=== PATIENT | female | born 1945 | race Caucasian/White ===

== ENCOUNTER 2017-02-10 09:04 | Outpatient (CLI) | payer MEDICARE ==
[2017-02-10 10:05] LABS: #Basophils 0.1 thou/uL (0.0-0.2); #Eosinphils 0.2 thou/uL (0.0-0.7); #Lymphocytes 2.2 thou/uL (1.20-3.40); #Monocytes 0.7 thou/uL (0.11-0.59); #Neutrophils 4.1 thou/uL (1.40-6.50); %Basophils 1.3 % (0.0-1.0); %Eosinophils 2.5 % (0.0-10.0); %Lymphocytes 30.1 % (21.0-51.0); %Monocytes 9.4 % (0.0-10.0); %Neutrophils 56.7 % (42.0-75.0); Hemoglobin 11.8 g/dL (12.0-16.0); Mean Corpuscular HGB CONC 31.1 g/dL (32.0-36.0); Mean Corpuscular Hemoglobin 27.1 pg (27.0-31.0); Mean Corpuscular Volume 87.2 fl (81.0-99.0); Mean Platelet Volume 7.7 fL (7.4-10.4); Platelet Count 268 thou/uL (130-400); RBC Distribution Width 16.4 % (11.5-14.5); Red Blood Cell (RBC) Count 4.36 mill/uL (4.20-5.40); White Blood Cell (WBC) Count 7.2 thou/uL (4.8-10.8)
[2017-02-10 10:22] LABS: Anion Gap 13 mmol/L (10-20); BUN (Urea Nitrogen) 18 mg/dL (9.8-20.1); Calc. Creatinine Clearance 0 mL/min (70-130); Carbon Dioxide 26 mmol/L (23-31); Chloride 109 mmol/L (98-107); Estimated GFR-MDRD 30; Potassium 5.2 mmol/L (3.5-5.1); Sodium 143 mmol/L (136-145)
[2017-02-10 10:23] LABS: ALT (SGPT) 8 U/L (8-55); AST (SGOT) 11 U/L (5-34); Albumin 4.1 g/dL (3.4-4.8); Alkaline Phosphatase 89 U/L (40-150); Bilirubin, Total 0.4 mg/dL (0.2-1.2); Calcium 9.8 mg/dL (7.8-10.44); Cardiac Risk 4.6 (Less than 4.5); Cholesterol 133 mg/dl (< 200 Desired); Globulin 2.7 g/dL (2.4-3.5); Glucose 92 mg/dL (83-110); HDL Cholesterol 29 mg/dL (>60 Neg Risk); LDL Cholesterol, Calculated 57 mg/dL; Protein, Total 6.8 g/dL (6.0-8.3); Triglycerides 236 mg/dL (Less than 150)
[2017-02-10 10:34] LABS: Thyroid Stimulating Hormone 0.9502 uIU/mL (0.35-4.94); Vitamin D, 25 Hydroxy 64.7 ng/ml (> 30.0)
== END 2017-02-10 09:05 | disposition home or self-care (01) ==
LOC: HPCALD 09:04
PROVIDERS: ATTEND Family Medicine
DX: E78.5 Hyperlipidemia, unspecified (principal); E55.9 Vitamin D deficiency, unspecified; I10 Essential (primary) hypertension
CPT/HCPCS: 36415; 80053; 80061; 82306; 84443; 85025

== ENCOUNTER 2017-03-15 07:31 | Outpatient (CLI) | payer MEDICARE ==
[2017-03-15 08:13] LABS: Anion Gap 14 mmol/L (10-20); BUN (Urea Nitrogen) 17 mg/dL (9.8-20.1); Calc. Creatinine Clearance 0 mL/min (70-130); Calcium 9.7 mg/dL (7.8-10.44); Carbon Dioxide 24 mmol/L (23-31); Chloride 110 mmol/L (98-107); Estimated GFR-MDRD 31; Glucose 103 mg/dL (83-110); Sodium 144 mmol/L (136-145)
[2017-03-15 08:20] LABS: Hemoglobin 11.6 g/dL (12.0-16.0)
[2017-03-15 18:00] LABS: Phosphorus 3.4 mg/dL (2.3-4.7)
[2017-03-15 18:58] LABS: Creatinine, Urine 88.39 mg/dL (47-110); Protein, Urine Random Quant Less than 10 mg/dL
== END 2017-03-15 07:32 | disposition home or self-care (01) ==
LOC: BURLAB 07:31
PROVIDERS: ATTEND Internal Medicine Nephrology
DX: E55.9 Vitamin D deficiency, unspecified (principal); I12.9 Hypertensive chronic kidney disease with stage 1 through stage 4 chronic kidney disease, or unspecified chronic kidney disease; N18.4 Chronic kidney disease, stage 4 (severe); D50.9 Iron deficiency anemia, unspecified
CPT/HCPCS: 36415; 80048; 82306; 82570; 83970; 84100; 84156; 85014; 85018

== ENCOUNTER 2017-03-16 08:55 | Outpatient (CLI) | payer MEDICARE ==
--- NOTE | 2017-03-16 22:52 | RAD ---
CHEST TWO VIEWS: 03/16/17 No prior films are available for comparison. There is a little increased density around the right hilum and along its inferior aspect. This may j ust be a small infiltrate, though I cannot rule out other pathology here. The left lung is clear. A calcified granuloma is seen in the left costophrenic angle. There are no effusions. The heart size i s normal and the trachea is midline. IMPRESSION: Some increased density and prominence around the region of the right hilum. I cannot tell if it is s olely infiltrative change or if other pathology is present. I would recommend treating the patient f or pneumonia, then repeating the chest x-ray after treatment. If it is not cleared completely, then consider a CT of the thorax. Alternatively, one could do a CT sooner if the clinical history dictate d. If would be preferred, should a CT be needed, to do it with IV contrast if that is possible. Code T POS: HOME
== END 2017-03-16 08:56 | disposition home or self-care (01) ==
LOC: BURRAD 08:55
PROVIDERS: ATTEND Family Medicine
DX: J42 Unspecified chronic bronchitis (principal); R91.8 Other nonspecific abnormal finding of lung field
CPT/HCPCS: 71020

== ENCOUNTER 2017-03-22 08:01 | Outpatient (CLI) | payer MEDICARE ==
--- NOTE | 2017-03-22 22:57 | RAD ---
CHEST TWO VIEWS 03/22/17 Comparison is made with the study of 03/16/17. While it is not quite as streaky around the right hilum as it was before, there is still a little ex tra density here. I am more concerned that on the lateral view, there is sort of a rounded area of i ncreased density in the anterior chest, possibly right middle lobe. Given a patient with COPD and th is not immediately resolving, I feel strongly that an elective CT scan needs to be done to rule out mass or other pathology here. The lungs are otherwise clear. A calcified granuloma is seen in the le ft costophrenic angle. The heart size remains normal. IMPRESSION: Slight improvement since 03/16 but a vague poorly marginated rounded density seen anteriorly on the l ateral view remains of concern. CT strongly recommended to remove all doubt. Code T POS: HOME
== END 2017-03-22 08:02 | disposition home or self-care (01) ==
LOC: BURRAD 08:01
PROVIDERS: ATTEND Family Medicine
DX: J42 Unspecified chronic bronchitis (principal); R91.8 Other nonspecific abnormal finding of lung field
CPT/HCPCS: 71020

== ENCOUNTER 2017-03-24 08:43 | Outpatient (CLI) | payer MEDICARE ==
--- NOTE | 2017-03-24 17:57 | CT ---
CT OF THE THORAX WITHOUT CONTRAST 03/24/[address] of the chest was performed without IV contrast for evaluation of an abnormal chest x-ray. IV contrast was deferred due to a low GFR. Axial slices were acquired and then coronal reconstruct ions were done. There is an area of consolidation with air bronchograms in the medial part of the right middle lobe. The finding is consistent with pneumonia. I do not see a discrete mass here or in the hilum, with in the limitations of a noncontrast study. The lungs are otherwise clear. There are no effusions. Calcification is seen in the coronary arteries to a mild to medium degree in the more proximal porti on of the LAD but denser in the mid to distal portions of the right coronary artery. There might be a trace of pericardial fluid present but certainly not any large amount. No mediastinal masses wer e seen. Scans into the upper abdomen showed no acute changes in the areas visualized. IMPRESSION: 1. Abnormality on chest x-ray is infiltrative in nature and is presumed to be pneumonia. No mass wa s seen. 2. Coronary arterial sclerosis, both in the LAD and right coronary that may deserve further follow-u p. Findings discussed with Dr. Rockwell at 0916 hours on 03/24/2017. POS: HOME
== END 2017-03-24 08:44 | disposition home or self-care (01) ==
LOC: BURCT 08:43
PROVIDERS: ATTEND Family Medicine
DX: R93.8 Abnormal findings on diagnostic imaging of other specified body structures (principal); I25.10 Atherosclerotic heart disease of native coronary artery without angina pectoris
CPT/HCPCS: 71250

== ENCOUNTER 2018-05-12 10:18 | Emergency (ER) | payer MEDICARE ==
[2018-05-12] MEDS ORDERED: Dexamethasone 4 MG TAB ONE (10:38)
[2018-05-12] MEDS ORDERED: AMOXicillin 250 MG CAP ONE (10:38)
== END 2018-05-12 10:44 | disposition home or self-care (01) ==
LOC: BURERS 10:18
DX: J06.9 Acute upper respiratory infection, unspecified (principal); H66.92 Otitis media, unspecified, left ear
CPT/HCPCS: 99283; J8540

== ENCOUNTER 2018-09-11 19:16 | Emergency (ER) | payer MEDICARE ==
[2018-09-11] MEDS ORDERED: Guaifenesin DM 100-10/5 ML UDCUP ONE (19:29)
[2018-09-11] MEDS ORDERED: Ibuprofen 200 MG TAB ONE (19:29)
--- NOTE | 2018-09-11 21:09 | RAD ---
CHEST TWO VIEWS: Date: 09-11-18 Comparison: 10-17-17 FINDINGS: While there is no major lobar infiltrate, the lung markings behind the heart on the lateral view seen a little more prominent than they were previously. The upper lobes are clear. There are no effusions . The heart size is normal. A small subcentimeter calcified granuloma is suggested in the left costop hrenic angle. It is unchanged from 2018. IMPRESSION: Questionable retrocardiac streaking. I cannot exclude a minimal infiltrate in the lung base, probably right. A follow up film in a few days may be helpful if symptoms are not improving. POS: HOME
== END 2018-09-11 19:55 | disposition home or self-care (01) ==
LOC: BURERS 19:16
DX: J11.1 Influenza due to unidentified influenza virus with other respiratory manifestations (principal); I10 Essential (primary) hypertension; E78.5 Hyperlipidemia, unspecified; F17.210 Nicotine dependence, cigarettes, uncomplicated; Z79.899 Other long term (current) drug therapy; Z79.82 Long term (current) use of aspirin
CPT/HCPCS: 71046; 87804

== ENCOUNTER 2019-03-17 17:48 | Emergency (ER) | payer MEDICARE ==
[2019-03-17] MEDS ORDERED: Ondansetron PF 4 MG/2 ML Vial ONE (18:29)
[2019-03-17 18:48] LABS: #Basophils 0.1 thou/uL (0.0-0.2); #Eosinphils 0.1 thou/uL (0.0-0.7); #Lymphocytes 0.3 thou/uL (1.20-3.40); #Monocytes 0.3 thou/uL (0.11-0.59); %Basophils 0.7 % (0.0-1.0); %Eosinophils 1.3 % (0.0-10.0); %Lymphocytes 3.7 % (21.0-51.0); %Monocytes 3.4 % (0.0-10.0); %Neutrophils 90.8 % (42.0-75.0); Hemoglobin 12.3 g/dL (12.0-16.0); Mean Corpuscular HGB CONC 32.4 g/dL (32.0-36.0); Mean Corpuscular Hemoglobin 31.8 pg (27.0-31.0); Mean Platelet Volume 8.1 fL (7.4-10.4); Platelet Count 218 thou/uL (130-400); RBC Distribution Width 13.3 % (11.5-14.5); Red Blood Cell (RBC) Count 3.87 mill/uL (4.20-5.40); White Blood Cell (WBC) Count 8.8 thou/uL (4.8-10.8)
[2019-03-17 19:00] LABS: ALT (SGPT) 8 U/L (8-55); AST (SGOT) 11 U/L (5-34); Albumin 4.3 g/dL (3.4-4.8); Alkaline Phosphatase 73 U/L (40-110); Anion Gap 15 mmol/L (10-20); BUN (Urea Nitrogen) 28 mg/dL (9.8-20.1); Bilirubin, Total 0.5 mg/dL (0.2-1.2); Calc. Creatinine Clearance 0 mL/min (70-130); Calcium 9.3 mg/dL (7.8-10.44); Carbon Dioxide 21 mmol/L (23-31); Chloride 111 mmol/L (98-107); Estimated GFR-MDRD 22; Globulin 2.7 g/dL (2.4-3.5); Glucose 101 mg/dL (83-110); Potassium 4.3 mmol/L (3.5-5.1); Sodium 143 mmol/L (136-145)
== END 2019-03-17 19:52 | disposition home or self-care (01) ==
LOC: BURERS 17:48
DX: E86.0 Dehydration (principal); R19.7 Diarrhea, unspecified; R11.2 Nausea with vomiting, unspecified; I10 Essential (primary) hypertension; F17.210 Nicotine dependence, cigarettes, uncomplicated; Z79.899 Other long term (current) drug therapy; Z79.82 Long term (current) use of aspirin
CPT/HCPCS: 80053; 85025; 96361; 96374; J2405

== ENCOUNTER 2019-08-03 11:33 | Outpatient (CLI) | payer MEDICARE ==
--- NOTE | 2019-08-03 19:42 | RAD ---
RIGHT SHOULDER THREE VIEWS: 08/03/19 No fracture, dislocation, or periarticular calcification was seen. The AC joint is upper normal in wi dth but shows no off-set. The visible adjacent ribs appear intact. IMPRESSION: No acute findings. POS: HOME
== END 2019-08-03 11:34 | disposition home or self-care (01) ==
LOC: BURRAD 11:33
PROVIDERS: ATTEND Family Medicine
DX: M25.511 Pain in right shoulder (principal)